=== PATIENT | male | born 1975 | race Caucasian/White ===

== ENCOUNTER 2018-01-07 07:24 | Emergency (ER) | payer OTHER ==
[~2018-01-07] VITALS: Ht 185.4 cm; Wt 102.1 kg
[~2018-01-07 07:24] MED LIST: IBUPROFEN 800800 M1 PO; TRAMADOL 50 MG50 MG PO
[2018-01-07 07:58] LABS: HEMATOCRIT 46.1 % (42.0-52.0); HEMOGLOBIN 15.9 gm/dL (14.0-18.0); MCH 28.8 pg (26.0-34.0); MCHC 34.4 g/dL (28.0-37.0); MCV 83.6 fL (80.0-100.0); RBC 5.51 mil/uL (4.50-6.00); RDW 14.4 % (10.5-14.5); WBC 5.9 thou/uL (4.0-11.0)
[2018-01-07 08:05] LABS: CALCIUM 9.3 mg/dL (8.5-10.1); POTASSIUM 4.3 mmol/L (3.5-5.1)
[2018-01-07 09:50] VITALS: BP 129/79
== END 2018-01-07 09:51 | disposition home or self-care (01) ==
LOC: ER 07:24
PROVIDERS: Student in an Organized Health Care Education/Training Program
DX: G44.009 Cluster headache syndrome, unspecified, not intractable (principal); R11.2 Nausea with vomiting, unspecified; R42 Dizziness and giddiness; Z91.041 Radiographic dye allergy status